=== PATIENT | male | born 1995 ===

== ENCOUNTER 2022-01-21 11:14 | Outpatient (CLI) | payer OTHER, SELFPAY ==
[2022-01-21 21:15] LABS: Chloride* 104 mmol/L (96-114)
[2022-01-21 21:16] LABS: Albumin* 4.7 g/dL (3.3-5.0); Potassium* 4.2 mmol/L (3.6-5.1); Sodium* 138 mmol/L (135-149)
[2022-01-21 21:18] LABS: Carbon Dioxide* 23 mmol/L (20-32); Creatinine* 0.9 mg/dL (0.5-1.5); Estimated Glomerular Filt Rate 119 ml/min
[2022-01-21 21:19] LABS: Alanine Aminotransferase* 19 U/L (4-50); Alkaline Phosphatase* 163 U/L (40-150); Aspartate Amino Transferase* 33 U/L (12-35); Bilirubin Total* 1.1 mg/dL (0.1-1.5); Blood Urea Nitrogen* 13 mg/dL (5-24); Calcium* 9.8 mg/dL (8.4-10.6); Glucose* 94 mg/dL (60-115); Total Protein* 7.6 g/dL (6.0-8.3)
[2022-01-21 21:37] LABS: Vitamin D 25 Hydroxy* 39 ng/mL (30-80)
== END 2022-01-21 11:15 | disposition home or self-care (01) ==
LOC: LKVREF 15:49
PROVIDERS: Visit Provider Nurse Practitioner Family
DX: Z79.899 Other long term (current) drug therapy (principal)
CPT/HCPCS: 80053; 82306; 84443

== ENCOUNTER 2022-03-31 17:35 | Outpatient (CLI) | payer OTHER, SELFPAY ==
[2022-03-31 13:50] LABS: Alkaline Phosphatase* 131 U/L (40-150); Cholesterol* 190 mg/dL (90-199); Triglycerides* 54 mg/dL (40-149)
[2022-03-31 13:51] LABS: HDL Cholesterol* 56 mg/dL (>=40); LDL Cholesterol Calculated 123 mg/dL (<100)
== END 2022-03-31 17:36 | disposition home or self-care (01) ==
PROVIDERS: Visit Provider Nurse Practitioner Family
DX: R07.9 Chest pain, unspecified (principal); R89.9 Unspecified abnormal finding in specimens from other organs, systems and tissues
CPT/HCPCS: 80061; 84075

== ENCOUNTER 2022-06-30 17:28 | Outpatient (CLI) | payer OTHER, SELFPAY | END 2022-06-30 17:29 | disposition home or self-care (01) | LOC: LKVREF 07-06 09:48 | PROVIDERS: Visit Provider Registered Nurse | DX: Z11.3 Encounter for screening for infections with a predominantly sexual mode of transmission (principal) | CPT/HCPCS: 87491; 87591 ==